=== PATIENT | female | born 1940 | race Caucasian/White ===

== ENCOUNTER 2024-04-24 10:00 | Inpatient (IN) | payer BC, MEDICARE ==
[~2024-04-24] VITALS: Ht 167.6 cm; Wt 55.4 kg
[2024-04-24 12:20] LABS: BASO % 0.1 % (0.0-1.0); HEMATOCRIT 35.2 % (36.0-47.0); HEMOGLOBIN 11.3 g/dl (12.0-15.5); LYMPH % 11.4 % (24.0-44.0); MEAN CORPUSCULAR HEMOGLOBIN 31.7 pg (27.0-33.0); MEAN CORPUSCULAR HGB CONC 32.1 g/dl (32.0-36.5); MEAN CORPUSCULAR VOLUME 98.6 fl (80.0-96.0); MONO # 0.8 10^3/uL (0.0-0.8); MONO % 4.5 % (2.0-8.0); NEUTROPHILS # 14.4 10^3/uL (1.5-8.5); NEUTROPHILS % 83.6 % (36.0-66.0); PLATELET COUNT, AUTOMATED 354 10^3/uL (150-450); RED BLOOD COUNT 3.57 10^6/uL (4.00-5.40); WHITE BLOOD COUNT 17.2 10^3/uL (4.0-10.0)
[2024-04-24] MEDS ORDERED: DONE10TA90 PO (12:24)
[2024-04-24] MEDS ORDERED: LISI30TA4 PO (12:24)
[2024-04-24] MEDS ORDERED: DONE5TAB86 PO (12:24)
[2024-04-24] MEDS ORDERED: SIMV20TA22 PO (12:24)
[2024-04-24] MEDS ORDERED: CLAR10CA3 PO (12:24)
[2024-04-24 12:50] LABS: CALCIUM LEVEL 9.6 MG/DL (8.3-10.6); CREATININE FOR GFR 1.19 MG/DL (0.55-1.30); GLOMERULAR FILTRATION RATE 46.2 (>32); POTASSIUM SERUM 4.1 MMOL/L (3.5-5.1)
[2024-04-24] MEDS ORDERED: ISOVUE-370 76% 100ML VIAL As Ordered ONE (12:59)
[2024-04-24] MEDS ORDERED: CITA10TA7 PO (13:30)
[2024-04-24] MEDS ORDERED: DONE5TAB82 PO (13:30)
[2024-04-24] MEDS ORDERED: XALA0.007 OU (13:30)
[2024-04-24] MEDS ORDERED: LORA-1041 PO (13:31)
[2024-04-24] MEDS ORDERED: HOME MED LIST COMPLETE! XX SCH (13:35)
[2024-04-24] MEDS: LIDOCAINE 2% 5ML JELLY UROJET TOP ONE (14:40)
[2024-04-24] MEDS: cefTRIAXone SOD 1 GM in DEXTROSE 5% (D5W) ADV/MINI-BAG 50 ML IV ONE (15:58)
[2024-04-24] MEDS: oxyBUTYnin 5 MG TAB PO STA (17:06)
[2024-04-24] MEDS: MORPHINE 2 MG/ML 1ML VIAL IV ONE (17:33)
[2024-04-24 21:30] VITALS: BP 106/53; TEMP 97.5; O2SAT 94
[2024-04-24] MEDS: ACETAMINOPHEN 325 MG TAB PO ONE (22:57)
[2024-04-25 03:37] VITALS: BP 106/54; TEMP 97.7; O2SAT 96
[2024-04-25 05:44] LABS: HEMATOCRIT 31.7 % (36.0-47.0); HEMOGLOBIN 10.4 g/dl (12.0-15.5); MEAN CORPUSCULAR HEMOGLOBIN 31.5 pg (27.0-33.0); MEAN CORPUSCULAR HGB CONC 32.8 g/dl (32.0-36.5); MEAN CORPUSCULAR VOLUME 96.1 fl (80.0-96.0); PLATELET COUNT, AUTOMATED 312 10^3/uL (150-450); WHITE BLOOD COUNT 17.4 10^3/uL (4.0-10.0)
[2024-04-25 05:58] LABS: INR 1.09; PROTHROMBIN TIME 14.4 SECONDS (12.5-14.5)
[2024-04-25 06:09] LABS: ALBUMIN 2.7 G/DL (3.2-5.2); ALKALINE PHOSPHATASE 77 U/L (35-104); ALT/SGPT < 9 U/L (7.0-40); AST/SGOT < 8 U/L (<34); BILIRUBIN,TOTAL 0.2 MG/DL (0.3-1.2); BLOOD UREA NITROGEN 36 MG/DL (9-23); CALCIUM LEVEL 9.3 MG/DL (8.3-10.6); CARBON DIOXIDE LEVEL 23 MMOL/L (20-31); CHLORIDE LEVEL 112 MMOL/L (98-107); CREATININE FOR GFR 1.16 MG/DL (0.55-1.30); GLOMERULAR FILTRATION RATE 47.6 (>32); GLUCOSE, FASTING 113 MG/DL (74-106); POTASSIUM SERUM 4.3 MMOL/L (3.5-5.1); SODIUM LEVEL 141 MMOL/L (136-145); TOTAL PROTEIN 5.6 G/DL (5.7-8.2)
[2024-04-25 06:16] LABS: PROCALCITONIN 1.55 ng/ml
[2024-04-25 08:00] VITALS: BP 126/59; TEMP 97.7; O2SAT 98
[2024-04-25] MEDS: oxyBUTYnin 5 MG TAB PO SCH (09:32)
[2024-04-25 12:00] VITALS: BP 124/55; TEMP 97.7; O2SAT 98
[2024-04-25] MEDS: cefTRIAXone SOD 1 GM in DEXTROSE 5% (D5W) ADV/MINI-BAG 50 ML IV SCH (13:25)
[2024-04-25] MEDS: ACETAMINOPHEN 325 MG TAB PO PRN (19:48)
[2024-04-25 20:00] VITALS: BP 153/53; TEMP 97.9; O2SAT 94
[2024-04-26 03:55] VITALS: BP 98/44; TEMP 96.6; O2SAT 97
[2024-04-26 04:00] VITALS: BP 140/57; TEMP 97.3; O2SAT 97
[2024-04-26 06:19] LABS: HEMATOCRIT 31.5 % (36.0-47.0); MEAN CORPUSCULAR HGB CONC 31.7 g/dl (32.0-36.5); MEAN CORPUSCULAR VOLUME 97.5 fl (80.0-96.0); PLATELET COUNT, AUTOMATED 265 10^3/uL (150-450); RED BLOOD COUNT 3.23 10^6/uL (4.00-5.40); WHITE BLOOD COUNT 9.7 10^3/uL (4.0-10.0)
[2024-04-26 06:31] LABS: INR 1.05
[2024-04-26 06:41] LABS: ALBUMIN 2.4 G/DL (3.2-5.2); ALKALINE PHOSPHATASE 71 U/L (35-104); ALT/SGPT < 9 U/L (7.0-40); AST/SGOT < 8 U/L (<34); BILIRUBIN,TOTAL 0.2 MG/DL (0.3-1.2); BLOOD UREA NITROGEN 25 MG/DL (9-23); CALCIUM LEVEL 8.8 MG/DL (8.3-10.6); CARBON DIOXIDE LEVEL 26 MMOL/L (20-31); CHLORIDE LEVEL 111 MMOL/L (98-107); CREATININE FOR GFR 1.08 MG/DL (0.55-1.30); GLOMERULAR FILTRATION RATE 51.7 (>32); GLUCOSE, FASTING 89 MG/DL (74-106); POTASSIUM SERUM 3.7 MMOL/L (3.5-5.1); SODIUM LEVEL 141 MMOL/L (136-145); TOTAL PROTEIN 5.3 G/DL (5.7-8.2)
[2024-04-26 12:00] VITALS: BP 124/64; TEMP 97.5; O2SAT 96
[2024-04-26] MEDS: LORATADINE 10 MG TAB PO SCH (17:14)
[2024-04-26] MEDS: SIMVASTATIN 20 MG TAB PO SCH (17:15)
[2024-04-26] MEDS: CitaloPRAM (CeleXA) 10 MG TABLET PO SCH (17:15)
[2024-04-26 20:00] VITALS: BP 137/67; TEMP 97.7; O2SAT 95
[2024-04-26] MEDS: DONEPEZIL 5 MG TAB PO SCH (20:05)
[2024-04-26] MEDS: LATANOPROST 0.005% OPHTH SOLN 2.5 ML OU SCH (20:06)
[2024-04-27 04:00] VITALS: BP 135/66; TEMP 97.3; O2SAT 94
[2024-04-27 06:41] LABS: HEMATOCRIT 33.9 % (36.0-47.0); HEMOGLOBIN 10.9 g/dl (12.0-15.5); MEAN CORPUSCULAR HEMOGLOBIN 31.4 pg (27.0-33.0); MEAN CORPUSCULAR HGB CONC 32.2 g/dl (32.0-36.5); MEAN CORPUSCULAR VOLUME 97.7 fl (80.0-96.0); PLATELET COUNT, AUTOMATED 275 10^3/uL (150-450); RED BLOOD COUNT 3.47 10^6/uL (4.00-5.40); WHITE BLOOD COUNT 9.2 10^3/uL (4.0-10.0)
[2024-04-27 06:53] LABS: INR 0.96; PROTHROMBIN TIME 13.1 SECONDS (12.5-14.5)
[2024-04-27 07:09] LABS: ALBUMIN 2.4 G/DL (3.2-5.2); ALKALINE PHOSPHATASE 66 U/L (35-104); ALT/SGPT < 9 U/L (7.0-40); AST/SGOT < 8 U/L (<34); BILIRUBIN,TOTAL 0.2 MG/DL (0.3-1.2); BLOOD UREA NITROGEN 16 MG/DL (9-23); CALCIUM LEVEL 8.9 MG/DL (8.3-10.6); CARBON DIOXIDE LEVEL 27 MMOL/L (20-31); CHLORIDE LEVEL 111 MMOL/L (98-107); CREATININE FOR GFR 0.91 MG/DL (0.55-1.30); GLOMERULAR FILTRATION RATE > 60.0 (>32); GLUCOSE, FASTING 94 MG/DL (74-106); POTASSIUM SERUM 3.9 MMOL/L (3.5-5.1); SODIUM LEVEL 143 MMOL/L (136-145); TOTAL PROTEIN 5.3 G/DL (5.7-8.2)
[2024-04-27 12:00] VITALS: BP 120/65; TEMP 97.1; O2SAT 94
[2024-04-27 19:35] VITALS: BP 141/66; TEMP 97.7; O2SAT 96
[2024-04-28 04:00] VITALS: BP 135/65; TEMP 97.5; O2SAT 95
[2024-04-28 06:09] LABS: HEMATOCRIT 31.9 % (36.0-47.0); HEMOGLOBIN 10.3 g/dl (12.0-15.5); MEAN CORPUSCULAR HEMOGLOBIN 31.3 pg (27.0-33.0); MEAN CORPUSCULAR HGB CONC 32.3 g/dl (32.0-36.5); PLATELET COUNT, AUTOMATED 274 10^3/uL (150-450); RED BLOOD COUNT 3.29 10^6/uL (4.00-5.40); WHITE BLOOD COUNT 8.2 10^3/uL (4.0-10.0)
[2024-04-28 06:25] LABS: INR 0.95
[2024-04-28 06:39] LABS: ALBUMIN 2.3 G/DL (3.2-5.2); ALKALINE PHOSPHATASE 65 U/L (35-104); ALT/SGPT 10 U/L (7.0-40); AST/SGOT < 8 U/L (<34); BILIRUBIN,TOTAL 0.2 MG/DL (0.3-1.2); BLOOD UREA NITROGEN 18 MG/DL (9-23); CALCIUM LEVEL 8.9 MG/DL (8.3-10.6); CARBON DIOXIDE LEVEL 27 MMOL/L (20-31); CHLORIDE LEVEL 109 MMOL/L (98-107); CREATININE FOR GFR 0.98 MG/DL (0.55-1.30); GLOMERULAR FILTRATION RATE 57.8 (>32); GLUCOSE, FASTING 93 MG/DL (74-106); POTASSIUM SERUM 3.9 MMOL/L (3.5-5.1); SODIUM LEVEL 144 MMOL/L (136-145); TOTAL PROTEIN 5.1 G/DL (5.7-8.2)
[2024-04-28 12:10] VITALS: BP 135/82; TEMP 98.8; O2SAT 98
[2024-04-28 19:54] VITALS: BP 112/50; TEMP 97.7; O2SAT 95
[2024-04-29] VITALS (7 sets, daily range): BP systolic 100–127; BP diastolic 40–68; TEMP 96.8–97.5; O2SAT 90–96
[2024-04-29 06:24] LABS: HEMATOCRIT 30.6 % (36.0-47.0); HEMOGLOBIN 10.1 g/dl (12.0-15.5); MEAN CORPUSCULAR HEMOGLOBIN 31.6 pg (27.0-33.0); MEAN CORPUSCULAR VOLUME 95.6 fl (80.0-96.0); PLATELET COUNT, AUTOMATED 294 10^3/uL (150-450)
[2024-04-29 06:35] LABS: INR 0.94; PROTHROMBIN TIME 12.9 SECONDS (12.5-14.5)
[2024-04-29 06:55] LABS: ALBUMIN 2.5 G/DL (3.2-5.2); ALKALINE PHOSPHATASE 67 U/L (35-104); ALT/SGPT 9 U/L (7.0-40); AST/SGOT < 8 U/L (<34); BILIRUBIN,TOTAL 0.2 MG/DL (0.3-1.2); BLOOD UREA NITROGEN 18 MG/DL (9-23); CALCIUM LEVEL 8.9 MG/DL (8.3-10.6); CARBON DIOXIDE LEVEL 28 MMOL/L (20-31); CHLORIDE LEVEL 108 MMOL/L (98-107); CREATININE FOR GFR 0.96 MG/DL (0.55-1.30); GLOMERULAR FILTRATION RATE 59.2 (>32); GLUCOSE, FASTING 92 MG/DL (74-106); POTASSIUM SERUM 4.4 MMOL/L (3.5-5.1); SODIUM LEVEL 142 MMOL/L (136-145); TOTAL PROTEIN 5.3 G/DL (5.7-8.2)
[2024-04-29 07:39] LABS: PROCALCITONIN 0.14 ng/ml
[2024-04-29] MEDS: CEFEPIME HCL 2 GM in DEXTROSE 5% (D5W) ADV/MINI-BAG 50 ML IV SCH (08:17)
[2024-04-29] MEDS ORDERED: fentaNYL 100 MCG/2 ML INJECTION As Ordered ONE (16:49)
[2024-04-29] MEDS ORDERED: ePHEDrine SULFATE 25 MG/5 ML(5MG/ML) SYRINGE As Ordered ONE (16:49)
[2024-04-29] MEDS ORDERED: LIDOCAINE 2% 100MG/5ML SDV (FOR ANES.) As Ordered ONE (16:49)
[2024-04-29] MEDS ORDERED: ONDANSETRON 4MG 2ML VIAL As Ordered ONE (16:49)
[2024-04-29] MEDS ORDERED: dexmedeTOMIDine (4MCG/ML)200MCG/50ML BTL (PRECEDEX) As Ordered ONE (16:49)
[2024-04-29] MEDS ORDERED: propofoL 200 MG/20 ML VIAL As Ordered ONE (16:49)
[2024-04-29] MEDS ORDERED: MIDAZOLAM INJ 2MG/2ML VIAL As Ordered ONE (16:49)
[2024-04-29] MEDS ORDERED: METOCLOPRAMIDE INJ 10MG/2ML VIAL As Ordered ONE (16:49)
[2024-04-29] MEDS ORDERED: HYDROMORPHONE HCL 0.5 MG/ 0.5 ML SYRINGE IV PRN (17:35)
[2024-04-29] MEDS ORDERED: ONDANSETRON 4MG 2ML VIAL IV PRN (17:35)
[2024-04-29] MEDS ORDERED: oxyCODONE 5MG TAB PO PRN (17:35)
[2024-04-29] MEDS ORDERED: fentaNYL 100 MCG/2 ML INJECTION IV PRN (17:35)
[2024-04-29] MEDS: NS 1,000 ML IV SCH (17:35)
[2024-04-30 04:00] VITALS: BP 115/59; TEMP 97.3; O2SAT 94
[2024-04-30 06:37] LABS: BASO % 0.3 % (0.0-1.0); EOS % 0.1 % (0.0-3.0); HEMATOCRIT 33.1 % (36.0-47.0); HEMOGLOBIN 10.7 g/dl (12.0-15.5); LYMPH # 1.9 10^3/uL (1.5-5.0); LYMPH % 17.7 % (24.0-44.0); MEAN CORPUSCULAR HEMOGLOBIN 31.7 pg (27.0-33.0); MEAN CORPUSCULAR HGB CONC 32.3 g/dl (32.0-36.5); MEAN CORPUSCULAR VOLUME 97.9 fl (80.0-96.0); MONO # 0.5 10^3/uL (0.0-0.8); MONO % 4.5 % (2.0-8.0); NEUTROPHILS # 8.2 10^3/uL (1.5-8.5); NEUTROPHILS % 76.9 % (36.0-66.0); PLATELET COUNT, AUTOMATED 308 10^3/uL (150-450); RED BLOOD COUNT 3.38 10^6/uL (4.00-5.40); WHITE BLOOD COUNT 10.6 10^3/uL (4.0-10.0)
[2024-04-30 06:49] LABS: INR 0.95
[2024-04-30 06:59] LABS: BLOOD UREA NITROGEN 22 MG/DL (9-23); CALCIUM LEVEL 9.1 MG/DL (8.3-10.6); CARBON DIOXIDE LEVEL 28 MMOL/L (20-31); CHLORIDE LEVEL 105 MMOL/L (98-107); CREATININE FOR GFR 0.92 MG/DL (0.55-1.30); GLOMERULAR FILTRATION RATE > 60.0 (>32); GLUCOSE, FASTING 107 MG/DL (74-106); POTASSIUM SERUM 4.6 MMOL/L (3.5-5.1); SODIUM LEVEL 138 MMOL/L (136-145)
[2024-04-30 08:00] VITALS: BP 116/55; TEMP 97.9; O2SAT 97
[2024-04-30 09:01] VITALS: BP 136/76
[2024-04-30 10:00] VITALS: BP 104/48; TEMP 97.5; O2SAT 92
[2024-04-30] MEDS ORDERED: AMOX500T PO (10:08)
== END 2024-04-30 15:45 | disposition home health service (06) | DRG 669 ==
LOC: EDBD 10:00 → M ED 10:00 → M ED INP 18:42 → M MS5PR 22:10
PROVIDERS: ADMIT Student in an Organized Health Care Education/Training Program; ATTEND Internal Medicine
PROC: 0TCB8ZZ Extirpation of Matter from Bladder, Via Natural or Artificial Opening Endoscopic (ICD-10-PCS; 2024-04-29)
PROC: 0TB Urinary System, Excision (ICD-10-PCS; principal; 2024-04-29 16:00)
DX: N30.01 Acute cystitis with hematuria (principal); D62 Acute posthemorrhagic anemia; N18.4 Chronic kidney disease, stage 4 (severe); G30.9 Alzheimer's disease, unspecified; F02.C0 Dementia in other diseases classified elsewhere, severe, without behavioral disturbance, psychotic disturbance, mood disturbance, and anxiety; I12.9 Hypertensive chronic kidney disease with stage 1 through stage 4 chronic kidney disease, or unspecified chronic kidney disease; E78.5 Hyperlipidemia, unspecified; Z79.899 Other long term (current) drug therapy; D72.829 Elevated white blood cell count, unspecified

== ENCOUNTER → 2024-05-07 | Outpatient (REF) | payer MEDICARE, BC ==
[~2024-05-07] MED LIST: AMOX500T PO; CITA10TA7 PO; CLAR10CA3 PO; DONE10TA90 PO; DONE5TAB82 PO; DONE5TAB86 PO; LISI30TA4 PO; LORA-1041 PO; SIMV20TA22 PO; XALA0.007 OU
== END ==
LOC: M SFHCADAM 12:24
PROVIDERS: ATTEND Physician Assistant
DX: D62 Acute posthemorrhagic anemia (principal); N30.91 Cystitis, unspecified with hematuria

== ENCOUNTER → 2024-06-03 | Outpatient (CLI) | payer MEDICARE, BC | LOC: M SOG 07:56 | PROVIDERS: ATTEND Orthopaedic Surgery | DX: M17.11 Unilateral primary osteoarthritis, right knee (principal) ==

== ENCOUNTER 2024-06-18 23:49 | Emergency (ER) | payer MEDICARE, BC ==
[~2024-06-18] VITALS: Ht 167.6 cm; Wt 55.2 kg
[2024-06-19 02:03] VITALS: BP 157/69; TEMP 97.2; O2SAT 96
== END 2024-06-19 02:04 | disposition home or self-care (01) ==
LOC: M ED 23:49
DX: S01.01XA Laceration without foreign body of scalp, initial encounter (principal); W01.198A Fall on same level from slipping, tripping and stumbling with subsequent striking against other object, initial encounter; M16.0 Bilateral primary osteoarthritis of hip; M47.896 Other spondylosis, lumbar region; M25.78 Osteophyte, vertebrae; I10 Essential (primary) hypertension; F03.90 Unspecified dementia, unspecified severity, without behavioral disturbance, psychotic disturbance, mood disturbance, and anxiety; Z79.2 Long term (current) use of antibiotics; Z79.811 Long term (current) use of aromatase inhibitors; Z79.899 Other long term (current) drug therapy

== ENCOUNTER → 2024-06-30 | Outpatient (REF) | payer MEDICARE | LOC: M SFHCADAM 12:42 | PROVIDERS: ATTEND Physician Assistant | DX: R30.0 Dysuria (principal) ==

== ENCOUNTER → 2024-10-14 | Outpatient (REF) | payer MEDICARE ==
[2024-10-14 13:48] LABS: BASO # 0.1 10^3/uL (0.0-0.2); BASO % 1.6 % (0.0-1.0); EOS # 0.5 10^3/uL (0.0-0.5); EOS % 6.8 % (0.0-3.0); HEMOGLOBIN 12.6 g/dl (12.0-15.5); LYMPH # 3.5 10^3/uL (1.5-5.0); LYMPH % 47.2 % (24.0-44.0); MEAN CORPUSCULAR HEMOGLOBIN 31.3 pg (27.0-33.0); MEAN CORPUSCULAR HGB CONC 31.5 g/dl (32.0-36.5); MEAN CORPUSCULAR VOLUME 99.3 fl (80.0-96.0); MONO # 0.4 10^3/uL (0.0-0.8); MONO % 5.7 % (2.0-8.0); NEUTROPHILS # 2.9 10^3/uL (1.5-8.5); NEUTROPHILS % 38.6 % (36.0-66.0); PLATELET COUNT, AUTOMATED 238 10^3/uL (150-450); RED BLOOD COUNT 4.03 10^6/uL (4.00-5.40); WHITE BLOOD COUNT 7.4 10^3/uL (4.0-10.0)
== END ==
LOC: M SFHCADAM 09:31
PROVIDERS: ATTEND Physician Assistant
DX: D62 Acute posthemorrhagic anemia (principal); N30.91 Cystitis, unspecified with hematuria

== ENCOUNTER → 2024-10-16 | Outpatient (REF) | payer MEDICARE ==
[2024-10-16 18:18] LABS: BILIRUBIN,TOTAL 0.5 MG/DL (0.3-1.2); CALCIUM LEVEL 9.6 MG/DL (8.3-10.6); CHOLESTEROL RISK RATIO 3.26 (<5); CREATININE FOR GFR 0.94 MG/DL (0.55-1.30); GLOMERULAR FILTRATION RATE 60.6 (>32); HDL CHOLESTEROL 49.9 MG/DL (>40); LDL CHOLESTEROL 88.3 MG/DL (<100); NON-HDL-C 113.1 MG/DL; POTASSIUM SERUM 3.7 MMOL/L (3.5-5.1); TOTAL PROTEIN 6.8 G/DL (5.7-8.2)
[2024-10-16 18:19] LABS: FREE T4 1.08 NG/DL (0.89-1.76); THYROID STIMULATING HORMONE 4.499 uIU/ML (0.55-4.78)
== END ==
LOC: M SFHCADAM 11:59
PROVIDERS: ATTEND Physician Assistant
DX: F03.B11 Unspecified dementia, moderate, with agitation (principal); Z87.440 Personal history of urinary (tract) infections; I10 Essential (primary) hypertension; E78.5 Hyperlipidemia, unspecified; Z79.899 Other long term (current) drug therapy

== ENCOUNTER → 2025-03-10 | Outpatient (CLI) | payer MEDICARE | LOC: M SOG 07:24 | PROVIDERS: ATTEND Orthopaedic Surgery | DX: M17.0 Bilateral primary osteoarthritis of knee (principal) ==

== ENCOUNTER → 2025-04-09 | Outpatient (REF) | payer MEDICARE ==
[2025-04-09 16:45] LABS: AMORPHOUS SEDIMENT SMALL (NEGATIVE); APPEARANCE, URINE TURBID (CLEAR); BACTERIA, URINE AUTO 3+ (NEGATIVE); BILIRUBIN, URINE AUTO NEGATIVE (NEGATIVE); BLOOD, URINE BLOOD 1+ (NEGATIVE); GLUCOSE, URINE (UA) AUTO NEGATIVE (NEGATIVE); KETONE, URINE AUTO NEGATIVE (NEGATIVE); LEUKOCYTE ESTERASE, URINE AUTO TRACE (NEGATIVE); MUCUS, URINE MODERATE (NEGATIVE); NITRITE, URINE AUTO NEGATIVE (NEGATIVE); PROTEIN, URINE AUTO 3+ mg/dL (NEGATIVE); RBC, URINE AUTO 13 /HPF (0-3); SPECIFIC GRAVITY URINE AUTO 1.015 (1.002-1.035); SQUAMOUS EPITHELIAL CELL UR AU 4 /HPF (0-6); TRANSITIONAL EPITHELIAL AUTO 1 /HPF; UROBILINOGEN, URINE AUTO 0.2 mg/dL (0.0-2.0); WBC, URINE AUTO TNTC /HPF (0-3)
[2025-04-09 17:19] LABS: PLATELET COUNT, AUTOMATED 336 10^3/uL (150-450)
[2025-04-09 17:22] LABS: CALCIUM LEVEL 8.9 MG/DL (8.3-10.6); CARBON DIOXIDE LEVEL 30.0 MMOL/L (20-31); CHLORIDE LEVEL 107.0 MMOL/L (98-107); CREATININE FOR GFR 1.03 MG/DL (0.55-1.30); GLOMERULAR FILTRATION RATE 54.0 (>32); MAGNESIUM LEVEL 2.3 MG/DL (1.8-2.4); POTASSIUM SERUM 4.0 MMOL/L (3.5-5.1); SODIUM LEVEL 148.0 MMOL/L (136-145)
== END ==
LOC: M SFHCADAM 14:44
PROVIDERS: ATTEND Physician Assistant
DX: R42 Dizziness and giddiness (principal); I10 Essential (primary) hypertension; F03.B11 Unspecified dementia, moderate, with agitation; Z79.899 Other long term (current) drug therapy